=== PATIENT | female | born 1950 | race Caucasian/White ===

== ENCOUNTER 2017-08-29 03:15 | Emergency (ER) | payer OTHER ==
[~2017-08-29] VITALS: Ht 149.9 cm; Wt 55.3 kg
[~2017-08-29 03:15] MED LIST: CLEOCIN HCL150 MG; VICODIN 5-5001 EACH
[2017-08-29] MEDS ORDERED: AMOXICILLIN500 M1 (03:28)
[2017-08-29] MEDS ORDERED: PROZAC10 M1 (03:29)
[2017-08-29] MEDS ORDERED: CLONAZEPAM 1 MG1 M1 (03:30)
[2017-08-29] MEDS ORDERED: OXYBUTYNIN ER (03:31)
[2017-08-29] MEDS ORDERED: ZANTAC 150MG T150 MG (03:32)
[2017-08-29] MEDS ORDERED: ASPIR 8181 MG (03:32)
[2017-08-29] MEDS ORDERED: DIPHENHYDRAMINE (03:33)
[2017-08-29] MEDS ORDERED: SYMBICORT160 MCG/4. (03:34)
[2017-08-29] MEDS ORDERED: PAXIL10 MG (03:34)
[2017-08-29] MEDS ORDERED: OCUVEL CAPSULE1 EACH (03:42)
[2017-08-29] MEDS ORDERED: B-121000 MC2 (03:43)
[2017-08-29] MEDS ORDERED: D-20002000 UNIT (03:44)
[2017-08-29] MEDS ORDERED: PREDNISONE50 MG PO (04:19)
[2017-08-29] MEDS ORDERED: HYDROXYZINE HCL25 M1 PO (04:19)
[2017-08-29 04:30] VITALS: BP 145/71
== END 2017-08-29 04:30 | disposition home or self-care (01) ==
LOC: M.ERS 03:15
DX: L50.9 Urticaria, unspecified (principal); T78.40XA Allergy, unspecified, initial encounter; F41.9 Anxiety disorder, unspecified; F32.9 Major depressive disorder, single episode, unspecified; Z88.1 Allergy status to other antibiotic agents; Z88.8 Allergy status to other drugs, medicaments and biological substances; X58.XXXA Exposure to other specified factors, initial encounter

== ENCOUNTER → 2018-08-27 | Outpatient (CLI) | payer OTHER ==
[~2018-08-27] MED LIST changes: +AMOXICILLIN500 M1; +ASPIR 8181 MG; +B-121000 MC2; +CLONAZEPAM 1 MG1 M1; +D-20002000 UNIT; +DIPHENHYDRAMINE; +HYDROXYZINE HCL25 M1 PO; +OCUVEL CAPSULE1 EACH; +OXYBUTYNIN ER; +PAXIL10 MG; +PREDNISONE50 MG PO; +PROZAC10 M1; +SYMBICORT160 MCG/4.; +ZANTAC 150MG T150 MG
--- NOTE | 2018-08-27 13:24 | 2DMMODE ---
[place] [address] 2 D/M-MODE ECHOCARDIOGRAM Name: LUISFARHAT Room: [facility]#: [id number] Admission: 08/27/18 Attend Phys: Tony Stone, Discharge: Date of : 48 Date of Service: 08/27/18 1324 Report #: [id number] THIS REPORT FOR: //name// APPROVED REPORT Study performed: 08/27/2018 10:42:10 EXAM: Comprehensive 2D, Doppler, and color-flow Echocardiogram Patient Location: Out-Patient BSA: 1.52 HR: 60 bpm BP: 158/75 mmHg Other Information Study Quality: Good Indications Chest Pain 2D Dimensions IVSd: 9.07 (7-11mm) LVOT Diam: 20.78 (18-24mm) LVDd: 40.02 mm PWd: 9.31 (7-11mm) Ascending Ao: 31.84 (22-36mm) LVDs: 23.90 (25-40mm) Aortic Root: 23.97 mm Volumes Left Atrial Volume (Systole) LA ESV Index: 20.60 mL/m2 Aortic Valve AoV Peak Nghia.: 0.84 m/s AO Peak Gr.: 2.84 mmHg LVOT Max P.41 mmHg AO Mean Gr.: 1.42 mmHg LVOT Mean P.07 mmHg LVOT Max V: 0.78 m/s AO V2 VTI: 19.30 cm LVOT Mean V: 0.47 m/s ENDY (VTI): 3.45 cm2 LVOT V1 VTI: 19.65 cm Mitral Valve E/A Ratio: 1.16 MV Decel. Time: 182.33 ms MV E Max Nghia.: 0.82 m/s MV PHT: 52.88 ms MVA (PHT): 4.16 [place]2 [place] [address] 2 D/M-MODE ECHOCARDIOGRAM Name: LUISFARHAT Room: [facility]#: [id number] Admission: 08/27/18 Attend Phys: Tony Stone, Discharge: Date of : 48 Date of Service: 08/27/18 1324 Report #: [id number] TDI E/Lateral E': 8.20 E/Medial E': 7.45 Medial E' Nghia.: 0.11 m/s Lateral E' Nghia.: 0.10 m/s Pulmonary Valve PV Peak Nghia.: 0.60 m/s PV Peak Gr.: 1.43 mmHg Tricuspid Valve RAP Estimate: 5.00 mmHg TR Peak Gr.: 19.47 mmHg RVSP: 24.47 mmHg PA Pressure: 24.47 mmHg Left Ventricle The left ventricle is normal size. There is normal LV segmental wall motion. There is normal left ventricular wall thickness. Left ventricular systolic function is normal. The left ventricular ejection fraction is within the normal range. LVEF is 55-60%. The left ventricular diastolic function is normal. Right Ventricle The right ventricle is normal size. The right ventricular systolic function is normal. Atria The left atrium size is normal. The right atrium size is normal. Aortic Valve The aortic valve is normal in structure. No aortic regurgitation is present. There is no aortic valvular stenosis. Mitral Valve The mitral valve is normal in structure. Mild mitral regurgitation. No evidence of mitral valve stenosis. Tricuspid Valve The tricuspid valve is normal in structure. Mild tricuspid regurgitation. Pulmonic Valve The pulmonary valve is normal in structure. There is no pulmonic valvular regurgitation[place] [address] 2 D/M-MODE ECHOCARDIOGRAM Name: FARHAT LUIS Room: [facility]#: [id number] Admission: 08/27/18 Attend Phys: Tony Stone, Discharge: Date of : 48 Date of Service: 08/27/18 1324 Report #: [id number] The aortic root is normal in size. IVC is normal in size and collapses >50% with inspiration. Pericardium There is no pericardial effusion. <Conclusion> LVEF is 55-60%. There is normal LV segmental wall motion. There is no aortic valvular stenosis. No aortic regurgitation is present. Mild mitral regurgitation. Mild tricuspid regurgitation. <ELECTRONICALLY SIGNED> By: Chevy Hammond MD, FACC 08/27/18 1324 1324 1324 Chevy Hammond MD, FACC /INF
--- NOTE | 2018-08-27 15:30 | CARDNUC ---
[place] [address] CARDIAC NUCLEAR IMAGING REPORT Name: FARHAT LUIS Room: [facility]#: [id number] Admission: 08/27/18 Attend Phys: Tony Stone, Discharge: Date of : 48 Date of Service: 08/27/18 1530 Report #: [id number] THIS REPORT FOR: //name// APPROVED REPORT Study performed: 08/27/2018 09:45:00 Indication: Chest pain Patient Location: Out-Patient Stress Tech: Kathy Cabrera Stress Nurse: Codie Stratton RN Ht: 5 ft 1 in Wt: 120 lbs BSA: 1.52 m2 HR: 54 bpm BP: 158/75 mmHg BMI: 22.67 Rhythm: NSR Medical History Medications: Aspirin Cardiac Risk Factors: Age, FHX of CAD Resting Data Rest SPECT myocardial perfusion imaging was performed in supine position 30 minutes following the intravenous injection of 11.0 mCi of Tc-99m Sestamibi. Time of rest injection: 10:00 The images were gated to evaluate regional wall motion and calculate left ventricular ejection fraction. Administration Route: IV Administration Site: Right Hand Exercise Stress At peak stress, the patient was injected intravenously with 35.3mCi of Tc-99m Sestamibi. Time of stress injection: 11:45 Administration Route: IV Administration Site: Right Hand Heart Rate at time of stress injection: 154 bpm. Gated Stress SPECT was performed 30 minutes after stress injection. The images were gated to evaluate regional wall motion and calculate left ventricular ejection fraction. Prone imaging was [place] [address] CARDIAC NUCLEAR IMAGING REPORT Name: LUISFARHAT Room: [facility]#: [id number] Admission: 08/27/18 Attend Phys: Tony Stone, Discharge: Date of : 48 Date of Service: 08/27/18 1530 Report #: [id number] Stress Test: Exercise stress testing was performed using a Juaquin protocol. HR Max Heart Rate (APMHR): 152 bpm Resting HR: 54 bpm Target HR (85% APMHR): 129 bpm Max HR Achieved: 154 bpm % of APMHR: 101 Recovery HR: 83 bpm HR response to stress: Normal HR response to stress BP Resting BP: 158/75 mmHg Max BP: 173/108 mmHg Recovery BP: 153/82 mmHg BP response to stress: Normal blood pressure response to stress. ECG Resting ECG: nsr Stress ECG: nsr ST Change: Horizontal ST depression Maximum ST Deviation: 1 mm Arrhythmia: none Recovery ECG: nsr Recovery ST Change: none Recovery Arrhythmia: none Clinical Reason for Termination: Completed protocol, Maximal effort Stress Symptoms: None Exercise duration: 6 min sec Stress ECG Conclusion positive ecg Study Quality Study: Fair Artifact: Moderate Breast artifact Lung Uptake: Normal Study Data Post stress, the left ventricular ejection was 74%.. SSS: 10 SRS: 1 SDS: 9 TID = 1.00. [place] [address] CARDIAC NUCLEAR IMAGING REPORT Name: LUISFARHAT Room: [facility]#: [id number] Admission: 08/27/18 Attend Phys: Tony Stone, Discharge: Date of : 48 Date of Service: 08/27/18 1530 Report #: [id number] Perfusion Review of rest data reveals normal perfusion, without perfusion defects.Imaging obtained following vasodilator stress demonstrate a similar, uniform uptake of tracer without defects. Prone imaging was normal. LVEDV is normal.No segental wall motion abnormality seen. Images were reviewed using [employer]. Wall Motion normal all segments Nuclear Conclusion ECG Findings: positive for ischemia Clinical Findings: negative for ischemia Nuclear Findings: negative for ischemia Exercise Capacity: normal Left Ventricular Function: normal Risk Study: low Negative perfusion exercise stress test for ischemia or infarct.Likely ecg findings are false positive <Conclusion> positive ecg <ELECTRONICALLY SIGNED> By: Chevy Hammond MD, [facility] 08/27/18 1530 153 1530 Chevy Hammond MD, FACC /INF
== END ==
LOC: M.NUC 08-26 08:00 → M.CRD 08-26 08:30 → M.NUC 09:47
DX: I08.1 Rheumatic disorders of both mitral and tricuspid valves (principal); E55.9 Vitamin D deficiency, unspecified; F32.1 Major depressive disorder, single episode, moderate